=== PATIENT | male | born 1960 | race Caucasian/White ===

== ENCOUNTER → 2024-07-13 | Outpatient (CLI) | payer MEDICARE ==
--- NOTE | 2024-07-13 14:36 | US ---
EXAMINATION TYPE: US carotid duplex BILAT DATE OF EXAM: 07/13/2024 COMPARISON: NONE CLINICAL INDICATION: Male, 64 years old with history of I65.23 STENOSIS Z12.2 LUNG CA SCR Z87.891 FOR CONCHIS; Hypertension, hyperlipidemia, diabetes. Prior smoker. Additional History: .... TECHNIQUE: Grayscale, color Doppler and spectral Doppler evaluation of the bilateral carotid systems and vertebral arteries. Indirect Doppler criteria was utilized. FINDINGS: EXAM MEASUREMENTS: RIGHT: Peak Systolic Velocity (PSV) cm/sec ----- Right CCA: 102 ----- Right ICA: 136 ----- Right ECA: 214 ICA/CCA ratio: 1.33 RIGHT: End Diastole cm/sec ----- Right CCA: 30.3 ----- Right ICA: 36.0 ----- Right ECA: 26.2 LEFT: Peak Systolic Velocity (PSV) cm/sec ----- Left CCA: 81.8 ----- Left ICA: 25.9 trickle color doppler flow seen ----- Left ECA: 25.2 ICA/CCA ratio: 0.32 LEFT: End Diastole cm/sec ----- Left CCA: 14.2 ----- Left ICA: 4.31 ----- Left ECA: 25.2 VERTEBRALS (direction of flow): Right Vertebral: Antegrade Left Vertebral: Not seen Rhythm: Normal MEDICAL OFFICE ASST NOTES: Only trickle color flow seen left prox ICA.Hypoechoic plaque seen throughout left ICA. Abnormal pulse wave arterial signal seen spectral doppler mid and distal left ICA. Elevated velocities within bilateral ECA and right ICA. IMPRESSION: Near-complete occlusion of the left internal carotid artery shortly after its origin. Co nsider CTA of the neck or direct catheter angiogram follow-up to confirm. Right: Less than 50% stenosis of the carotid bifurcation. Left: Near occlusion of the carotid bifurcation. Criteria for Assigning % of Stenosis / Diameter reduction (Estimation based on the indirect measurements of the internal carotid artery velocities (ICA PSV). 1. Normal (no stenosis)=ICA PSV < 125 cm/s: ratio < 2.0: ICA EDV<40 cm/s. 2. Less than 50% stenosis=ICA PSV < 125 cm/s: ratio < 2.0: ICA EDV<40 cm/s. 3. 50 to 69% stenosis=ICA PSV of 125 to 230 cm/s: ration 2.0 ? 4.0: ICA EDV 40-100 cm/s. 4. Greater than 70% stenosis to near occlusion= ICA PSV > 230 cm/s: ratio > 4.0: ICA EDV > 100 cm/s. 5. Near occlusion= ICA PSV velocities may be low or undetectable: variable ratio and ICA EDV. 6. Total occlusion=unable to detect flow. [facility], , 07/13/2024 2:34 PM
== END | disposition home or self-care (01) ==
LOC: RADUSWWP 13:39
PROVIDERS: ATTEND Family Medicine
DX: I65.23 Occlusion and stenosis of bilateral carotid arteries (principal); E11.9 Type 2 diabetes mellitus without complications; I10 Essential (primary) hypertension; E78.5 Hyperlipidemia, unspecified; Z87.891 Personal history of nicotine dependence
CPT/HCPCS: 93880

== ENCOUNTER → 2024-11-20 | Outpatient (CLI) | payer MEDICARE ==
[2024-11-20 11:53] LABS: African American GFR (CKD) 71 (>60 ml/min/1.73 sqM); Blood Urea Nitrogen 26 mg/dL (9-20); Non-African American GFR(CKD) 62 (>60 ml/min/1.73 sqM)
--- NOTE | 2024-11-20 13:18 | CT ---
EXAMINATION TYPE: CT angio neck CT DLP: 481.7 mGycm, Automated exposure control for dose reduction was used. DATE OF EXAM: 11/20/2024 1:04 PM COMPARISON: Carotid ultrasound 07/13/2024. CLINICAL INDICATION:Male, 64 years old with history of I65.23 OCCLUSION AND STENOSIS OF BILATERAL CAR OTID; PHH, left side carotid stenosis TECHNIQUE: Axially acquired helical CT angiogram of the neck was obtained with contrast utilizing 75 cc of [id number]-[id number] administered intravenously. Axial images are supplemented with 3D reconstructions wh ich were post-processed at an independent workstation. NASCET criteria used. MIP imaging performed on a separate workstation and submitted for review. FINDINGS: CTA NECK: Right Carotid System: The common carotid artery and external carotid artery are patent. Large amount of calcified plaque at the carotid bifurcation extending into the proximal internal carotid artery. Results in 25% stenosis . Moderate amount of calcified plaque within the cavernous portion of the internal carotid artery res ulting in mild to moderate stenosis. The remaining portions of the internal carotid artery demonstrat e normal size without significant narrowing. Left Carotid System: The common carotid artery and external carotid artery are patent. There is occlusion of the left inte rnal carotid artery just after its origin secondary to calcified and noncalcified plaque. No contrast opacification of the remaining left internal carotid artery just before its bifurcation with the MCA . Tiny retrograde flow at the bifurcation of the MCA. Vertebral arteries are patent without evidence hemodynamically significant stenosis. Dominant left ve rtebral artery. There is a three-vessel aortic arch. The origins of the great vessels are patent. No evidence of hemo dynamically significant stenosis. Visualized portions of the bilateral A1 segments and MCA segments are patent. IMPRESSION: 1. Occlusion of the left internal carotid artery at its origin with no contrast opacification to its bifurcation with the MCA. The left common carotid and external carotid arteries are widely patent. 2. Approximately 25% stenosis at the origin of the right internal carotid artery secondary to calcifi ed plaque. 3. No evidence of dissection or significant any significant stenosis of the vertebral arteries. [facility], , 11/20/2024 1:16 PM
== END | disposition home or self-care (01) ==
LOC: RADCTMAIN 11:04
PROVIDERS: ATTEND Internal Medicine Cardiovascular Disease
DX: I65.23 Occlusion and stenosis of bilateral carotid arteries (principal)
CPT/HCPCS: 82565; 84520; 70498; 36415; Q9967